=== PATIENT | female | born 1980 | race Caucasian/White ===

== ENCOUNTER 2016-05-28 22:10 | Emergency (ER) | payer MEDICARE ==
--- NOTE | 2016-05-28 22:45 | ERPHSYRPT ---
- History of Present Illness Time Seen by Provider: 05/28/16 22:35 Source: patient Exam Limitations: no limitations Physician History: FOR THE PAST 8 DAYS PT HAS HAD UPPER ABDOMINAL PAIN/CRAMPS WITH NAUSEA, WAS ADMITTED TO [facility] FOR 4 DAYS AND WAS TRANSFERRED TO [facility] WITH DISCHARGE TODAY. PT STATES SHE STILL HAS THE ABDOMINAL PAIN. PT ALSO STATES SHE HAS HAD SHORTNESS OF AIR FOR THE PAST 4 DAYS AND FEVER OF 101 DEGREES TONIGHT. LAST BM WAS TODAY & WNL WITHOUT BLOOD. PT STATES SHE HAD A PE 5 YEARS AGO AND WAS ON COUMADIN FOR ABOUT 1 YEAR. Allergies/Adverse Reactions: trazodone Allergy (Mild, Verified 06/01/15 20:02) Itching iodine Allergy (Verified 05/22/16 10:38) shellfish derived Allergy (Verified 05/22/16 10:38) acetaminophen [From Darvocet-N 100] Adverse Reaction (Verified 06/01/15 20:02) amoxicillin [Amoxicillin] Adverse Reaction (Verified 06/01/15 20:02) Vomiting azithromycin [From Zithromax] Adverse Reaction (Verified 06/01/15 20:02) Vomiting codeine Adverse Reaction (Verified 06/01/15 20:02) haloperidol [From Haldol] Adverse Reaction (Verified 06/01/15 20:02) haloperidol lactate [From Haldol] Adverse Reaction (Verified 06/01/15 20:02) levofloxacin [From Levaquin] Adverse Reaction (Verified 06/01/15 20:02) Rapid Heart Beat palpitations oxycodone [Oxycodone] Adverse Reaction (Verified 06/01/15 20:02) propoxyphene napsylate [From Darvocet-N 100] Adverse Reaction (Verified 20:02) Home Medications: Acetazolamide [Diamox Sequels] 250 mg PO TID 05/21/16 [History] Albuterol Common Canister [Proventil Common Canister] 2 puff PO QID [History] Budesonide/Formoterol Fumarate [Symbicort 160-4.5 Mcg Inhaler] 2 aer PO DAILY [History] Diazepam 10 mg PO TID 05/21/16 [History] Fluoxetine HCl 10 mg [Prozac 10 mg] 40 mg PO DAILY 05/21/16 [History] Folic Acid 1 mg PO DAILY 05/21/16 [History] Gemfibrozil 600 mg [Lopid 600 mg] 600 mg PO BID 05/21/16 [History] Levothyroxine Sodium 100 Mcg [Synthroid 100 Mcg] 100 mcg PO DAILY 05/21/16 [History] Metformin HCl 500 mg [Glucophage 500 MG] 500 mg PO BID 05/21/16 [History] Montelukast Sodium [Singulair] 10 mg PO DAILY 05/21/16 [History] Oxybutynin Chloride [Oxybutynin Chloride ER] 10 mg PO DAILY 05/21/16 [History] Pantoprazole Sodium [Protonix] 40 mg PO DAILY 05/21/16 [History] Phenytoin Sodium Extended [Dilantin] 200 mg PO TID 05/21/16 [History] Propranolol HCl [Propranolol HCl ER] 120 mg PO DAILY 05/21/16 [History] Quetiapine Fumarate [Seroquel] 300 mg PO BID 05/21/16 [History] Spironolactone 25 mg [Aldactone 25 MG] 25 mg PO BID 05/21/16 [History] Topiramate 25 mg [Topamax 25 MG] 25 mg PO BID 05/21/16 [History] Hx Tetanus, Diphtheria Vaccination/Date Given: Yes Hx Influenza Vaccination/Date Given: No Hx Pneumococcal Vaccination/Date Given: No - Review of Systems Constitutional: Fever Respiratory: Dyspnea Cardiac: No Chest Pain Abdominal/Gastrointestinal: Abdominal Pain, No Diarrhea Endocrine: No Excessive Sweating All Other Systems: Reviewed and Negative - Past Medical History Pertinent Past Medical History: Yes Neurological History: Other Cardiac History: Congestive Heart Failure, High Cholesterol, Other Respiratory History: Asthma, COPD, Pneumonia, Sleep Apnea Endocrine Medical History: Diabetes Type II, Hypothyroidism Musculoskeletal History: Degenerative Disk Disease, Osteoarthritis GI Medical History: Other History: No Pertinent History Psycho-Social History: Other Female Reproductive Disorders: No Pertinent History Other Medical History: 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 Tachycardia. Insulin Dependent Diabetes. Depression - Seen by Addie Chacon. Has been approved for bariatric surgery - still has to get cardiac clearance and do dietitian classes but plans on having done before the end of the year - Past Surgical History Past Surgical History: Yes Neuro Surgical History: No Pertinent History Cardiac: No Pertinent History Respiratory: No Pertinent History Gastrointestinal: Appendectomy, Cholecystectomy Genitourinary: No Pertinent History Musculoskeletal: No Pertinent History Female Surgical History: No Pertinent History Other Surgical History: sinus surgery, tonsillectomy - Social History Smoking Status: Former smoker Exposure to second hand smoke: Yes Drug Use: none Patient Lives Alone: Yes - Female History Hx Now: No - Nursing Vital Signs Nursing Vital Signs: Initial Vital Signs Temperature 97.3 F Temperature Source Oral Pulse Rate 78 Respiratory Rate 20 Blood Pressure [] 95/56 Pain Intensity 8 - Physical Exam General Appearance: alert Eye Exam: PERRL/EOMI Ears, Nose, Throat Exam: TMs normal, moist mucous membranes, TM abnormal (L) ( LEFT TM ERYTHEMATOUS), pharyngeal erythema Neck Exam: normal inspection Respiratory Exam: lungs clear Cardiovascular Exam: normal heart sounds Gastrointestinal/Abdomen Exam: soft, normal bowel sounds, tenderness (MILD EPIGASTRIC TENDERNESS) Back Exam: normal range of motion Extremity Exam: pedal edema (+1 BILATERALLY) Neurologic Exam: alert, cooperative Skin Exam: warm, dry SpO2 Interpretation: normal SpO2: 95 Oxygen Delivery: Room Air - Course Nursing assessment & vital signs reviewed: Yes EKG Interpreted by Me: RATE ([id number]), Sinus Rhythm, NORMAL AXIS, NORMAL INTERVALS - Radiology Exams Chest X-ray Interpretation: Interpreted by me, No Pneumonia Ordered Tests: Active Orders 24 hr Category Date Time Status Mechanical Process Engineer STAT Care 05/28/16 22:40 Active EKG-ER Only STAT Care 05/28/16 22:40 Active IV Insertion STAT Care 05/28/16 22:40 Active NPO (ED) STAT Care 05/28/16 22:40 Active Oxygen-ED Only NASAL CANNULA 2 lpm Care 05/28/16 22:40 Active Pulse Oximetry (ED) STAT Care 05/28/16 22:40 Active CHEST 1 VIEW (PORTABLE) Stat Exams 05/28/16 22:40 Taken AMYLASE Stat Lab 05/28/16 23:00 Completed BLOOD CULTURE Stat Lab 05/28/16 23:12 Received CBC W DIFF Stat Lab 05/28/16 23:00 Completed CMP Stat Lab 05/28/16 23:00 Completed CULTURE,SPUTUM Stat Lab 05/28/16 22:41 Uncollected D-DIMER QUANTITATION Stat Lab 05/28/16 23:00 Completed HCG QUALITATIVE,SERUM Stat Lab 05/28/16 23:00 Completed LIPASE Stat Lab 05/28/16 23:00 Completed MAGNESIUM Stat Lab 05/28/16 23:00 Completed Manual Differential NC Stat Lab 05/28/16 23:00 Completed NT PRO BNP Stat Lab 05/28/16 23:00 Completed TROPONIN Stat Lab 05/28/16 23:00 Completed UA W/ MICROSCOPIC Stat Lab 05/28/16 23:06 Completed Urine Triage Profile Stat Lab 05/28/16 23:06 Completed Medication Summary Generic Name Dose Route Start Last Admin Trade Name Freq PRN Reason Stop Dose Admin Sodium Chloride 1,000 mls @ 100 mls/hr 05/28/16 22:45 05/29/16 00:01 Sodium Chloride 0.9% 1000 Ml IV 06/27/16 22:44 100 mls/hr .Q10H IVY Administration Discontinued Medications Generic Name Dose Route Start Last Admin Trade Name Freq PRN Reason Stop Dose Admin Sodium Chloride Confirm 05/28/16 23:52 Sodium Chloride 0.9% 1000 Ml Administered 05/28/16 23:53 Dose 1,000 mls @ ud .ROUTE .STK-MED ONE Sodium Chloride 1,000 mls @ 999 mls/hr 05/29/16 00:18 05/29/16 00:23 Sodium Chloride 0.9% 1000 Ml IV 05/29/16 01:18 999 mls/hr .Q1H1M STA Administration Magnesium Sulfate/Dextrose 100 mls @ 200 mls/hr 05/29/16 00:19 05/29/16 00:26 Magnesium 1 Gm / 100 Ml D5w IV 05/29/16 00:48 200 mls/hr STAT ONE Administration Magnesium Sulfate/Dextrose Confirm 05/29/16 00:26 Magnesium 1 Gm / 100 Ml D5w Administered 05/29/16 00:27 Dose 100 mls @ ud IV .STK-MED ONE Lab/Rad Data: Laboratory Result Diagrams 05/28/16 23:00 05/28/16 23:00 Laboratory Results 05/28/16 05/28/16 05/28/16 Range/Units 23:06 23:06 23:00 WBC (4.0-10.5) K/mm3 RBC (4.1-5.4) M/mm3 Hgb (12.0-16.0) gm/dl Hct (35-47) % MCV (78-100) fl MCH (26-32) pg MCHC (32-36) g/dl RDW (11.5-14.0) % Plt Count (150-450) K/mm3 MPV (6-9.5) fl Segmented Neutrophils (36.0-66.0) % Band Neutrophils (0.0-2.0) % Lymphocytes (Manual) (24-44) % Monocytes (Manual) (0.0-12.0) % Eosinophils (Manual) (0.00-3.0) % Differential Comment Platelet Estimate (NORMAL) D-Dimer 0.407 (0.00-0.49) mg/L Sodium (136-145) mEq/L Potassium (3.5-5.1) mEq/L Chloride (98-107) mEq/L Carbon Dioxide (21-32) mEq/L Anion Gap (5-15) MEQ/L BUN (9-20) mg/dL Creatinine (0.55-1.30) mg/dl Estimated GFR ML/MIN Glucose (70-110) MG/DL Calcium (8.5-10.1) mg/dL Magnesium (1.8-2.4) mg/dL Total Bilirubin (0.2-1.0) mg/dL AST (15-37) U/L ALT (12-78) U/L Alkaline Phosphatase (46-116) U/L Troponin I (0.000-0.056) ng/ml NT-Pro-B Natriuret Pep (0-125) pg/ml Serum Total Protein (6.4-8.2) gm/dL Albumin (3.4-5.0) g/dL Amylase (25-115) U/L Lipase (73-393) U/L Serum , Qual (Negative) Ur Collection Type CLEAN CATCH Urine Color YELLOW (YELLOW) Urine Appearance SLIGHTLY CLOUDY (CLEAR) Urine pH 7.5 (5-6) Ur Specific [place] 1.015 (1.005-1.025) Urine Protein NEGATIVE (Negative) Urine Glucose (UA) NEGATIVE (NEGATIVE) mg/dL Urine Ketones NEGATIVE (NEGATIVE) Urine Nitrite NEGATIVE (NEGATIVE) Urine Bilirubin NEGATIVE (NEGATIVE) Urine Urobilinogen 0.2 (0-1) mg/dL Urine WBC (Auto) NEGATIVE (NEGATIVE) Urine RBC (Auto) SMALL (0-5) Chace/ul Urine Microscopic RBC 0-2 (0-2) /HPF Urine Microscopic WBC 0-2 (0-5) /HPF Ur Epithelial Cells MODERATE (FEW) /HPF Urine Bacteria PACKED (NEGATIVE) /HPF Urine Opiates Level NEG. (NEGATIVE) Ur Methadone NEG. (NEGATIVE) Urine Barbiturates NEG. (NEGATIVE) Ur Phencyclidine (PCP) NEG. (NEGATIVE) Urine Amphetamine NEG. (NEGATIVE) U Benzodiazepine Level POS. (NEGATIVE) Urine Cocaine NEG. (NEGATIVE) Urine Marijuana (THC) NEG. (NEGATIVE) Specimen Received 05/28/16 2245 05/28/16 05/28/16 05/28/16 Range/Units 23:00 23:00 23:00 WBC (4.0-10.5) K/mm3 RBC (4.1-5.4) M/mm3 Hgb (12.0-16.0) gm/dl Hct (35-47) % MCV (78-100) fl MCH (26-32) pg MCHC (32-36) g/dl RDW (11.5-14.0) % Plt Count (150-450) K/mm3 MPV (6-9.5) fl Segmented Neutrophils (36.0-66.0) % Band Neutrophils (0.0-2.0) % Lymphocytes (Manual) (24-44) % Monocytes (Manual) (0.0-12.0) % Eosinophils (Manual) (0.00-3.0) % Differential Comment Platelet Estimate (NORMAL) D-Dimer (0.00-0.49) mg/L Sodium 143 (136-145) mEq/L Potassium 3.7 (3.5-5.1) mEq/L Chloride 106 (98-107) mEq/L Carbon Dioxide 26.0 (21-32) mEq/L Anion Gap 14.7 (5-15) MEQ/L BUN 6 L (9-20) mg/dL Creatinine 0.75 (0.55-1.30) mg/dl Estimated GFR > 60 ML/MIN Glucose 107 (70-110) MG/DL Calcium 8.5 (8.5-10.1) mg/dL Magnesium 1.7 L (1.8-2.4) mg/dL Total Bilirubin 0.1 L (0.2-1.0) mg/dL AST 36 (15-37) U/L ALT 19 (12-78) U/L Alkaline Phosphatase 100 (46-116) U/L Troponin I < 0.017 (0.000-0.056) ng/ml NT-Pro-B Natriuret Pep 224 H (0-125) pg/ml Serum Total Protein 7.0 (6.4-8.2) gm/dL Albumin 3.5 (3.4-5.0) g/dL Amylase 24 L (25-115) U/L Lipase 100 (73-393) U/L Serum , Qual NEGATIVE (Negative) Ur Collection Type Urine Color (YELLOW) Urine Appearance (CLEAR) Urine pH (5-6) Ur Specific [place] (1.005-1.025) Urine Protein (Negative) Urine Glucose (UA) (NEGATIVE) mg/dL Urine Ketones (NEGATIVE) Urine Nitrite (NEGATIVE) Urine Bilirubin (NEGATIVE) Urine Urobilinogen (0-1) mg/dL Urine WBC (Auto) (NEGATIVE) Urine RBC (Auto) (0-5) Chace/ul Urine Microscopic RBC (0-2) /HPF Urine Microscopic WBC (0-5) /HPF Ur Epithelial Cells (FEW) /HPF Urine Bacteria (NEGATIVE) /HPF Urine Opiates Level (NEGATIVE) Ur Methadone (NEGATIVE) Urine Barbiturates (NEGATIVE) Ur Phencyclidine (PCP) (NEGATIVE) Urine Amphetamine (NEGATIVE) U Benzodiazepine Level (NEGATIVE) Urine Cocaine (NEGATIVE) Urine Marijuana (THC) (NEGATIVE) Specimen Received 05/28/16 Range/Units 23:00 WBC 10.7 H (4.0-10.5) K/mm3 RBC 4.25 (4.1-5.4) M/mm3 Hgb 11.9 L (12.0-16.0) gm/dl Hct 39.5 (35-47) % MCV 92.9 (78-100) fl MCH 28.0 (26-32) pg MCHC 30.1 L (32-36) g/dl RDW 15.1 H (11.5-14.0) % Plt Count 168 (150-450) K/mm3 MPV 10.7 H (6-9.5) fl Segmented Neutrophils 71 H (36.0-66.0) % Band Neutrophils 4 H (0.0-2.0) % Lymphocytes (Manual) 21 L (24-44) % Monocytes (Manual) 3 (0.0-12.0) % Eosinophils (Manual) 1 (0.00-3.0) % Differential Comment NORMAL Platelet Estimate NORMAL (NORMAL) D-Dimer (0.00-0.49) mg/L Sodium (136-145) mEq/L Potassium (3.5-5.1) mEq/L Chloride (98-107) mEq/L Carbon Dioxide (21-32) mEq/L Anion Gap (5-15) MEQ/L BUN (9-20) mg/dL Creatinine (0.55-1.30) mg/dl Estimated GFR ML/MIN Glucose (70-110) MG/DL Calcium (8.5-10.1) mg/dL Magnesium (1.8-2.4) mg/dL Total Bilirubin (0.2-1.0) mg/dL AST (15-37) U/L ALT (12-78) U/L Alkaline Phosphatase (46-116) U/L Troponin I (0.000-0.056) ng/ml NT-Pro-B Natriuret Pep (0-125) pg/ml Serum Total Protein (6.4-8.2) gm/dL Albumin (3.4-5.0) g/dL Amylase (25-115) U/L Lipase (73-393) U/L Serum , Qual (Negative) Ur Collection Type Urine Color (YELLOW) Urine Appearance (CLEAR) Urine pH (5-6) Ur Specific [place] (1.005-1.025) Urine Protein (Negative) Urine Glucose (UA) (NEGATIVE) mg/dL Urine Ketones (NEGATIVE) Urine Nitrite (NEGATIVE) Urine Bilirubin (NEGATIVE) Urine Urobilinogen (0-1) mg/dL Urine WBC (Auto) (NEGATIVE) Urine RBC (Auto) (0-5) Chace/ul Urine Microscopic RBC (0-2) /HPF Urine Microscopic WBC (0-5) /HPF Ur Epithelial Cells (FEW) /HPF Urine Bacteria (NEGATIVE) /HPF Urine Opiates Level (NEGATIVE) Ur Methadone (NEGATIVE) Urine Barbiturates (NEGATIVE) Ur Phencyclidine (PCP) (NEGATIVE) Urine Amphetamine (NEGATIVE) U Benzodiazepine Level (NEGATIVE) Urine Cocaine (NEGATIVE) Urine Marijuana (THC) (NEGATIVE) Specimen Received - Progress Discussed with Dr.: Other (SPOKE WITH DR VARGAS([id number])(HOSPITALIST AT [facility]) WHO ACCEPTED PT FOR TRANSFER TO [facility] A DIRECT ADMISSION.) - Departure Time of Disposition: 01:23 Departure Disposition: Transfer ([facility]) Clinical Impression: ABDOMINAL PAIN, DYSPNEA, OBESITY, COPD, DM, HYPOTHYROIDISM, ARTHRITIS, DEPRESSION, HYPOMAGNESEMIA Condition: Stable Critical Care Time: No
[2016-05-28 23:05] LABS: Mean Cell Volume 92.9 fl (78-100); Mean Platelet Volume 10.7 fl (6-9.5); Platelet Count 168 K/mm3 (150-450); Red Blood Count 4.25 M/mm3 (4.1-5.4); Red Cell Distribution Width 15.1 % (11.5-14.0); White Blood Count 10.7 K/mm3 (4.0-10.5)
[2016-05-28 23:22] LABS: Collection Type CLEAN CATCH
[2016-05-28 23:23] LABS: Bacteria PACKED /HPF (NEGATIVE); COMPLETE URINE MICROSCOPIC? YES; Epithelial Cells MODERATE /HPF (FEW); Ph 7.5 (5-6); WBC 0-2 /HPF (0-5)
[2016-05-28 23:36] LABS: ALBUMIN 3.5 g/dL (3.4-5.0); ALKALINE PHOSPHATASE 100 U/L (46-116); ANION GAP 14.7 MEQ/L (5-15); BILIRUBIN,TOTAL 0.1 mg/dL (0.2-1.0); BLOOD UREA NITROGEN 6 mg/dL (9-20); CHLORIDE 106 mEq/L (98-107); Glucose 107 MG/DL (70-110); LIPASE 100 U/L (73-393); MAGNESIUM 1.7 mg/dL (1.8-2.4); Potassium 3.7 mEq/L (3.5-5.1); SGOT/AST 36 U/L (15-37); SGPT/ALT 19 U/L (12-78); SODIUM 143 mEq/L (136-145)
[2016-05-28] MEDS ORDERED: Sodium Chloride 0.9% 1000 ML 1,000 ML ONE (23:52)
[2016-05-29] MEDS: Sodium Chloride 0.9% 1000 ML 1,000 ML IV SCH ×2 (00:01→03:49)
[2016-05-29 00:05] LABS: BAND 4 % (0.0-2.0); Eosinophil 1 % (0.00-3.0); Platelet Estimate NORMAL (NORMAL); Total Cells Counted 100
[2016-05-29] MEDS ORDERED: Sodium Chloride 0.9% 1000 ML 1,000 ML IV STA (00:18)
[2016-05-29] MEDS ORDERED: Magnesium 1 Gm / 100 Ml D5W*** 100 ML IV ONE ×2 (00:19→00:26)
[2016-05-29] MEDS ORDERED: Sodium Chloride 0.9% 1000 ML 1,000 ML ONE (03:42)
[2016-05-29] MEDS ORDERED: Hydromorphone 1 mg/ml Ampule IV ONE (03:42)
[2016-05-29] MEDS ORDERED: Phenergan 25 MG INJ IV ONE (03:42)
[2016-05-29] MEDS ORDERED: Phenergan 25 MG INJ ONE (03:46)
[2016-05-29] MEDS ORDERED: Hydromorphone 1 mg/ml Ampule ONE (03:46)
[2016-05-29 07:02] VITALS: BP 125/61; PULSE 78; O2SAT 97
--- NOTE | 2016-05-29 09:20 | XRAY ---
Indication: Short of breath. Comparison: May 22, 2016. Portable chest demonstrates new right mid to lower lung infiltrate/atelectasis. Remaining lungs clear. Heart is not enlarged. Comment: Right lung finding not reported on preliminary interpretation by the ER clinician. I gave telephone report to Dr. Iniguez in the ER at 0915 hours on May 29, 2016.
== END 2016-05-29 05:08 | disposition short-term general hospital (02) ==
LOC: ED 22:10
DX: R10.9 Unspecified abdominal pain (principal); R06.00 Dyspnea, unspecified; E66.9 Obesity, unspecified; J44.9 Chronic obstructive pulmonary disease, unspecified; E11.9 Type 2 diabetes mellitus without complications; E03.9 Hypothyroidism, unspecified; M19.90 Unspecified osteoarthritis, unspecified site; J45.909 Unspecified asthma, uncomplicated; F32.9 Major depressive disorder, single episode, unspecified; Z79.84 Long term (current) use of oral hypoglycemic drugs; Z79.899 Other long term (current) drug therapy
CPT/HCPCS: 36000; 36415; 71010; 80053; 80307; 81000; 82150; 83690; 83735; 83880; 84484; 84703; 85025; 85379; 87040; 93005; 96374; 96375; 99285; J1170; J2550; J3475

== ENCOUNTER 2016-12-08 23:38 | Emergency (ER) | payer MEDICARE ==
[2016-12-09 00:14] VITALS: O2SAT 94
--- NOTE | 2016-12-09 01:02 | ERPHSYRPT ---
- History of Present Illness Time Seen by Provider: 12/09/16 00:17 Source: patient, family (BROTHER & BOYFRIEND) Exam Limitations: no limitations Patient Subjective Stated Complaint: pt states she was hospitalized at [facility] th night and had a high ammonia level. states since dc, she has been feeling worse and having increased dizziness. Triage Nursing Assessment: pt awake and alert, asnwers questions approp. pt ambulatory with slow steady gait noted, respirations nonlabored with lungs cta. abd obese, soft. bowel sounds noted. pupils equal and reactive, bilat upper and lower ext strength equal. speech slow, approp. Physician History: FOR THE PAST 6 DAYS PT HAS HAD CONFUSION AND DISORIENTATION. THREE DAYS AGO PT WAS HOSPITALIZED AT [facility] OVERNIGHT FOR AN INCREASED AMMONIA LEVEL OF 85 WHICH DECREASED TO 56 AT DISCHARGE. PT DENIES CHEST PAIN, SHORTNESS OF AIR, VOMITING, DIARRHEA; ADMITS TO DIFFUSE ABDOMINAL PAIN, A RIGHT EARACHE AND NO ORAL INTAKE FOR THE PAST 2 DAYS. Allergies/Adverse Reactions: trazodone Allergy (Mild, Verified 12/09/16 00:19) Itching iodine Allergy (Verified 12/09/16 00:19) shellfish derived Allergy (Verified 12/09/16 00:19) acetaminophen [From Darvocet-N 100] Adverse Reaction (Verified 12/09/16 00:19) amoxicillin [Amoxicillin] Adverse Reaction (Verified 12/09/16 00:19) Vomiting codeine Adverse Reaction (Verified 12/09/16 00:19) haloperidol [From Haldol] Adverse Reaction (Verified 12/09/16 00:19) haloperidol lactate [From Haldol] Adverse Reaction (Verified 12/09/16 00:19) levofloxacin [From Levaquin] Adverse Reaction (Verified 12/09/16 00:19) Rapid Heart Beat palpitations oxycodone [Oxycodone] Adverse Reaction (Verified 06/01/15 20:02) propoxyphene napsylate [From Darvocet-N 100] Adverse Reaction (Verified 20:02) Home Medications: Acetazolamide [Diamox Sequels] 250 mg PO TID 05/21/16 [History] Albuterol Common Canister [Proventil Common Canister] 2 puff PO QID [History] Budesonide/Formoterol Fumarate [Symbicort 160-4.5 Mcg Inhaler] 2 aer PO DAILY [History] Diazepam 10 mg PO TID 05/21/16 [History] Fluoxetine HCl 10 mg [Prozac 10 mg] 40 mg PO DAILY 05/21/16 [History] Folic Acid 1 mg PO DAILY 05/21/16 [History] Gemfibrozil 600 mg [Lopid 600 mg] 600 mg PO BID 05/21/16 [History] Levothyroxine Sodium 100 Mcg [Synthroid 100 Mcg] 100 mcg PO DAILY 05/21/16 [History] Metformin HCl 500 mg [Glucophage 500 MG] 500 mg PO BID 05/21/16 [History] Montelukast Sodium [Singulair] 10 mg PO DAILY 05/21/16 [History] Oxybutynin Chloride [Oxybutynin Chloride ER] 10 mg PO DAILY 05/21/16 [History] Pantoprazole Sodium [Protonix] 40 mg PO DAILY 05/21/16 [History] Phenytoin Sodium Extended [Dilantin] 200 mg PO TID 05/21/16 [History] Propranolol HCl [Propranolol HCl ER] 120 mg PO DAILY 05/21/16 [History] Quetiapine Fumarate [Seroquel] 300 mg PO BID 05/21/16 [History] Spironolactone 25 mg [Aldactone 25 MG] 25 mg PO BID 05/21/16 [History] Topiramate 25 mg [Topamax 25 MG] 25 mg PO BID 05/21/16 [History] Albuterol 2.5 mg/3 ml Neb [Proventil 2.5 mg/3 ml Neb] 2.5 mg IH QID PRN [History] Budesonide/Formoterol Fumarate [Symbicort 160-4.5 Mcg Inhaler] 2 puffs BID 05/29 [History] Lorazepam 1 mg PO TID 05/29/16 [History] Tramadol HCl 50 mg [Ultram 50 mg] 50 mg PO 05/29/16 [History] Hx Tetanus, Diphtheria Vaccination/Date Given: Yes Hx Influenza Vaccination/Date Given: No Hx Pneumococcal Vaccination/Date Given: No Immunizations Up to Date: Yes - Review of Systems Ears, Nose, & Throat: Ear Pain Abdominal/Gastrointestinal: Abdominal Pain, Appetite Changes (DECREASED FOR 2 DAYS) Neurological: Other (CONFUSION; DISORIENTATION.) All Other Systems: Reviewed and Negative - Past Medical History Pertinent Past Medical History: Yes Neurological History: Other Cardiac History: Congestive Heart Failure, High Cholesterol, Other Respiratory History: Asthma, COPD, Pneumonia, Sleep Apnea Endocrine Medical History: Diabetes Type II, Hypothyroidism Musculoskeletal History: Degenerative Disk Disease, Osteoarthritis GI Medical History: Other History: No Pertinent History Psycho-Social History: Other Female Reproductive Disorders: No Pertinent History Other Medical History: 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 Tachycardia. Insulin Dependent Diabetes. Depression - Seen by [facility]. Has been approved for bariatric surgery - still has to get cardiac clearance and do dietitian classes but plans on having done before the end of the year - Past Surgical History Past Surgical History: Yes Neuro Surgical History: Brain Shunt Cardiac: No Pertinent History Respiratory: No Pertinent History Gastrointestinal: Appendectomy, Cholecystectomy Genitourinary: No Pertinent History Musculoskeletal: No Pertinent History Female Surgical History: No Pertinent History Other Surgical History: sinus surgery, tonsillectomy - Social History Smoking Status: Current every day smoker How long have you smoked: 14 Exposure to second hand smoke: Yes Drug Use: none Patient Lives Alone: No - Female History Hx Last Menstrual Period: 11/22/16 Hx Now: No - Nursing Vital Signs Nursing Vital Signs: Initial Vital Signs Temperature 98.2 F 12/08/16 23:48 Pulse Rate 96 H 12/08/16 23:48 Respiratory Rate 22 12/08/16 23:48 Blood Pressure 124/87 12/08/16 23:48 O2 Sat by Pulse Oximetry 94 L 12/08/16 23:48 Pain Scale Pain Intensity 8 - Physical Exam General Appearance: alert Eye Exam: PERRL/EOMI Ears, Nose, Throat Exam: pharynx normal, moist mucous membranes Neck Exam: normal inspection Respiratory Exam: lungs clear Cardiovascular Exam: normal heart sounds Gastrointestinal/Abdomen Exam: soft, normal bowel sounds Back Exam: normal range of motion Extremity Exam: normal inspection Neurologic Exam: alert, cooperative, sensation nml, other (NO BABINSKI PRESENT) Skin Exam: warm, dry SpO2 Interpretation: normal SpO2: 94 Oxygen Delivery: Room Air - Course Nursing assessment & vital signs reviewed: Yes - CT Exams Head CT Interpretation: Tele-radiologist Report (THERE IS NO EVIDENCE OF ACUTE INTRA- AXIAL OR CRANIAL BONE ABNORMALITIES.) Abdomen/Pelvis CT Interpretation: Tele-radiologist Report (THERE IS NO EVIDENCE OF ACUTE FOCAL INTRA-ABDOMINAL OR PELVIC ABNORMALITIES. THE GALLBLADDER AND APPENDIX ARE SURGICALLY ABSENT. THERE IS NO EVIDENCE OR ACUTE RENAL OR URETERAL ABNORMALITIES. THE PELVIC ORGANS ARE UNREMARKABLE. THERE ARE SLIGHT COMPRESSION FRACTURES OF THE SUPERIOR ENDPLATES OF T9 - T12 WHICH DO NOT APPEAR ACUTE. THERE IS NO EVIDENCE OF ACUTE DISC PROTRUSIONS OR SPINAL CANAL STENOSIS.) Ordered Tests: Active Orders 24 hr Category Date Time Status ABDOMEN AND PELVIS W/0 CONTRAS [CT] Stat Exams 12/09/16 01:07 Taken HEAD WITHOUT CONTRAST [CT] Stat Exams 12/09/16 01:09 Taken AMYLASE Stat Lab 12/09/16 01:06 Completed CBC W DIFF Stat Lab 12/09/16 01:34 Completed CMP Stat Lab 12/09/16 01:06 Completed DILANTIN(PHENYTOIN) Stat Lab 12/09/16 01:15 Completed HCG QUALITATIVE,SERUM Stat Lab 12/09/16 01:35 Completed LIPASE Stat Lab 12/09/16 01:06 Completed MAG [MAGNESIUM] Stat Lab 12/09/16 01:15 Completed T4 Stat Lab 12/09/16 01:06 Completed TSH, 3RD Generation Stat Lab 12/09/16 01:06 Completed UA W/RFX UR CULTURE Stat Lab 12/09/16 02:14 Completed Medication Summary Generic Name Dose Route Start Last Admin Trade Name Freq PRN Reason Stop Dose Admin Magnesium Oxide 400 mg 12/09/16 10:00 Mag-Ox 400 PO 01/08/17 09:59 BID IVY Phenytoin Sodium 200 mg 12/09/16 03:45 Dilantin 100 Mg PO 12/09/16 03:46 STAT ONE Potassium Chloride 40 meq 12/09/16 10:00 12/09/16 03:10 Potassium Chl 40 Meq/30 Ml Oral Solution PO 01/08/17 09:59 40 meq DAILY IVY Administration Discontinued Medications Generic Name Dose Route Start Last Admin Trade Name Freq PRN Reason Stop Dose Admin Potassium Chloride Confirm 12/09/16 02:52 Klor Con 10 Meq Administered 12/09/16 02:53 Dose 40 meq PO .STK-MED ONE Lab/Rad Data: Laboratory Result Diagrams 12/09/16 01:34 12/09/16 01:06 Laboratory Results 12/09/16 12/09/16 12/09/16 Range/Units 02:14 01:35 01:35 WBC (4.0-10.5) K/mm3 RBC (4.1-5.4) M/mm3 Hgb (12.0-16.0) gm/dl Hct (35-47) % MCV (78-100) fl MCH (26-32) pg MCHC (32-36) g/dl RDW (11.5-14.0) % Plt Count (150-450) K/mm3 MPV (6-9.5) fl Gran % (36.0-66.0) % Lymphocytes % (24.0-44.0) % Monocytes % (0.0-12.0) % Eosinophils % (0.00-5.0) % Basophils % (0.0-0.4) % Basophils # (0-0.4) Sodium (136-145) mEq/L Potassium (3.5-5.1) mEq/L Chloride (98-107) mEq/L Carbon Dioxide (21-32) mEq/L Anion Gap (5-15) MEQ/L BUN (9-20) mg/dL Creatinine (0.55-1.30) mg/dl Estimated GFR ML/MIN Glucose (70-110) MG/DL Calcium (8.5-10.1) mg/dL Magnesium (1.8-2.4) mg/dL Total Bilirubin (0.2-1.0) mg/dL AST (15-37) U/L ALT (12-78) U/L Alkaline Phosphatase (46-116) U/L Ammonia 44 H (11-32) MMOL/l Serum Total Protein (6.4-8.2) gm/dL Albumin (3.4-5.0) g/dL Amylase (25-115) U/L Lipase (73-393) U/L Thyroxine (T4) (4.7-13.3) UG/DL TSH 3rd Generation (0.358-3.740) mIU/L Serum , Qual NEGATIVE (Negative) Ur Collection Type VOID Urine Color YELLOW (YELLOW) Urine Appearance CLEAR (CLEAR) Urine pH 5.0 (5-6) Ur Specific [place] 1.030 (1.005-1.025) Urine Protein NEGATIVE (Negative) Urine Ketones NEGATIVE (NEGATIVE) Urine Blood NEGATIVE (0-5) Chace/ul Urine Nitrite NEGATIVE (NEGATIVE) Urine Bilirubin NEGATIVE (NEGATIVE) Urine Urobilinogen NORMAL (0-1) mg/dL Ur Leukocyte Esterase NEGATIVE (NEGATIVE) Urine Glucose NEGATIVE (NEGATIVE) mg/dL Phenytoin (10-20) ug/ml Specimen Received 12/09/16 0215 12/09/16 12/09/16 12/09/16 Range/Units 01:34 01:15 01:15 WBC 10.4 (4.0-10.5) K/mm3 RBC 4.37 (4.1-5.4) M/mm3 Hgb 12.8 (12.0-16.0) gm/dl Hct 41.0 (35-47) % MCV 93.8 (78-100) fl MCH 29.3 (26-32) pg MCHC 31.2 L (32-36) g/dl RDW 14.9 H (11.5-14.0) % Plt Count 173 (150-450) K/mm3 MPV 10.9 H (6-9.5) fl Gran % 67.3 H (36.0-66.0) % Lymphocytes % 24.2 (24.0-44.0) % Monocytes % 6.4 (0.0-12.0) % Eosinophils % 1.7 (0.00-5.0) % Basophils % 0.4 (0.0-0.4) % Basophils # 0.04 (0-0.4) Sodium (136-145) mEq/L Potassium (3.5-5.1) mEq/L Chloride (98-107) mEq/L Carbon Dioxide (21-32) mEq/L Anion Gap (5-15) MEQ/L BUN (9-20) mg/dL Creatinine (0.55-1.30) mg/dl Estimated GFR ML/MIN Glucose (70-110) MG/DL Calcium (8.5-10.1) mg/dL Magnesium 1.7 L (1.8-2.4) mg/dL Total Bilirubin (0.2-1.0) mg/dL AST (15-37) U/L ALT (12-78) U/L Alkaline Phosphatase (46-116) U/L Ammonia (11-32) MMOL/l Serum Total Protein (6.4-8.2) gm/dL Albumin (3.4-5.0) g/dL Amylase (25-115) U/L Lipase (73-393) U/L Thyroxine (T4) (4.7-13.3) UG/DL TSH 3rd Generation (0.358-3.740) mIU/L Serum , Qual (Negative) Ur Collection Type Urine Color (YELLOW) Urine Appearance (CLEAR) Urine pH (5-6) Ur Specific [place] (1.005-1.025) Urine Protein (Negative) Urine Ketones (NEGATIVE) Urine Blood (0-5) Chace/ul Urine Nitrite (NEGATIVE) Urine Bilirubin (NEGATIVE) Urine Urobilinogen (0-1) mg/dL Ur Leukocyte Esterase (NEGATIVE) Urine Glucose (NEGATIVE) mg/dL Phenytoin 3.9 L (10-20) ug/ml Specimen Received 12/09/16 Range/Units 01:06 WBC (4.0-10.5) K/mm3 RBC (4.1-5.4) M/mm3 Hgb (12.0-16.0) gm/dl Hct (35-47) % MCV (78-100) fl MCH (26-32) pg MCHC (32-36) g/dl RDW (11.5-14.0) % Plt Count (150-450) K/mm3 MPV (6-9.5) fl Gran % (36.0-66.0) % Lymphocytes % (24.0-44.0) % Monocytes % (0.0-12.0) % Eosinophils % (0.00-5.0) % Basophils % (0.0-0.4) % Basophils # (0-0.4) Sodium 145 (136-145) mEq/L Potassium 3.3 L (3.5-5.1) mEq/L Chloride 111 H (98-107) mEq/L Carbon Dioxide 18.9 L (21-32) mEq/L Anion Gap 18.2 H (5-15) MEQ/L BUN 5 L (9-20) mg/dL Creatinine 0.68 (0.55-1.30) mg/dl Estimated GFR > 60 ML/MIN Glucose 116 H (70-110) MG/DL Calcium 8.7 (8.5-10.1) mg/dL Magnesium (1.8-2.4) mg/dL Total Bilirubin 0.10 L (0.2-1.0) mg/dL AST 23 (15-37) U/L ALT 17 (12-78) U/L Alkaline Phosphatase 103 (46-116) U/L Ammonia (11-32) MMOL/l Serum Total Protein 6.7 (6.4-8.2) gm/dL Albumin 3.3 L (3.4-5.0) g/dL Amylase 22 L (25-115) U/L Lipase 74 (73-393) U/L Thyroxine (T4) 3.6 (4.7-13.3) UG/DL TSH 3rd Generation 1.139 (0.358-3.740) mIU/L Serum , Qual (Negative) Ur Collection Type Urine Color (YELLOW) Urine Appearance (CLEAR) Urine pH (5-6) Ur Specific [place] (1.005-1.025) Urine Protein (Negative) Urine Ketones (NEGATIVE) Urine Blood (0-5) Chace/ul Urine Nitrite (NEGATIVE) Urine Bilirubin (NEGATIVE) Urine Urobilinogen (0-1) mg/dL Ur Leukocyte Esterase (NEGATIVE) Urine Glucose (NEGATIVE) mg/dL Phenytoin (10-20) ug/ml Specimen Received - Departure Time of Disposition: 03:59 Departure Disposition: Home Clinical Impression: ABDOMINAL PAIN, MILD HYPOKALEMIA, MILD HYPOMAGNESEMIA, SUBTHERAPEUTIC DILANTIN LEVEL, DIZZINESS, DECREASING AMMONIA LEVEL OF 44, ARTHRITIS, DM, HYPOTHYROIDISM , COPD Condition: Stable Critical Care Time: No Referrals: STEPHANIE NELSON [Primary Care Provider] - Instructions: Vertigo Additional Instructions: FOLLOW UP WITH PRIVATE DOCTOR LATER TODAY. Prescriptions: Meclizine HCl 25 mg [Antivert 25 mg] 25 mg PO Q8H PRN PRN #30 tablet PRN Reason: Dizziness
[2016-12-09 01:41] LABS: BASOPHIL % 0.4 % (0.0-0.4); Eosinophil % 1.7 % (0.00-5.0); Granulocytes % 67.3 % (36.0-66.0); Lymphocytes % 24.2 % (24.0-44.0); Mean Cell Volume 93.8 fl (78-100); Mean Corpuscular Hemoglobin 29.3 pg (26-32); Mean Platelet Volume 10.9 fl (6-9.5); Monocytes % 6.4 % (0.0-12.0); Platelet Count 173 K/mm3 (150-450); Red Blood Count 4.37 M/mm3 (4.1-5.4); Red Cell Distribution Width 14.9 % (11.5-14.0); White Blood Count 10.4 K/mm3 (4.0-10.5)
[2016-12-09 02:10] LABS: ALBUMIN 3.3 g/dL (3.4-5.0); ALKALINE PHOSPHATASE 103 U/L (46-116); ANION GAP 18.2 MEQ/L (5-15); BLOOD UREA NITROGEN 5 mg/dL (9-20); CHLORIDE 111 mEq/L (98-107); Carbon Dioxide 18.9 mEq/L (21-32); Glucose 116 MG/DL (70-110); LIPASE 74 U/L (73-393); Potassium 3.3 mEq/L (3.5-5.1); SGOT/AST 23 U/L (15-37); SGPT/ALT 17 U/L (12-78); SODIUM 145 mEq/L (136-145); Total Protein 6.7 gm/dL (6.4-8.2)
[2016-12-09 02:17] LABS: Collection Type VOID
[2016-12-09 02:18] LABS: ADD URINE CULTURE? NO (NO); Bilirubin NEGATIVE (NEGATIVE); Blood NEGATIVE Ery/ul (0-5); COMPLETE URINE MICROSCOPIC? NO; Glucose NEGATIVE (NEGATIVE); Leukocyte Esterase NEGATIVE (NEGATIVE)
[2016-12-09] MEDS ORDERED: Klor Con 10 MEQ PO ONE (02:52)
[2016-12-09] MEDS ORDERED: POTASSIUM CHLORIDE 20 MEQ POWDER FOR ORAL SOL PO ONE (03:05)
[2016-12-09] MEDS ORDERED: Dilantin 100 MG PO ONE (03:45)
[2016-12-09] MEDS ORDERED: MAG-OX 400 ONE (03:53)
[2016-12-09 04:12] VITALS: BP 118/68; PULSE 87
--- NOTE | 2016-12-09 09:25 | XRAY ---
Indication: Dizziness and disorientated. Multiple contiguous axial images obtained through the head without contrast. Comparison: January 02, 2013. Again study slightly degraded by motion artifact. No acute intracranial hemorrhage, abnormal extra-axial fluid question, or mass effect. Fourth ventricle is midline without hydrocephalus. Francois-white matter differentiation preserved. Bony calvarium intact. Visualized paranasal sinuses and mastoid air cells clear. Impression: Motion artifact. No acute intracranial abnormalities. Comment: Preliminary interpretation was made by [facility]. No discrepancy. CT DI 87.81
--- NOTE | 2016-12-09 09:31 | XRAY ---
Indication: Diffuse abdominal pain. Multiple contiguous axial images obtained through the abdomen and pelvis without contrast as ordered. Comparison: None Lung bases essentially clear. Heart is not enlarged. Noncontrasted stomach and small bowel loops appear nonobstructed. Previous reported appendectomy and cholecystectomy. No free fluid/air. Spleen is enlarged measuring 17.8 cm greatest axial dimension. Remaining liver, pancreas, spleen, adrenal glands, kidneys, ureters, bladder, uterus, and aorta appear unremarkable for noncontrast exam. Osseous structures intact with incidental thoracic spine Schmorl nodes and remnant spinal stimulator lead. Impression: 1. No acute intra-abdominal/pelvic abnormalities on this noncontrast exam. 2. Incidental splenomegaly. Comment: Preliminary interpretation was made by [facility]. Splenomegaly not reported and is a incidental finding. CT DI 28.13
[2016-12-09] MEDS ORDERED: POTASSIUM CHL 40 MEQ/30 ML ORAL SOLUTION PO SCH (10:00)
[2016-12-09] MEDS ORDERED: MAG-OX 400 PO SCH (10:00)
== END 2016-12-09 04:32 | disposition home or self-care (01) ==
LOC: ED 23:38
DX: R10.9 Unspecified abdominal pain (principal); E87.6 Hypokalemia; E83.42 Hypomagnesemia; Z79.899 Other long term (current) drug therapy; R42 Dizziness and giddiness; R88.8 Abnormal findings in other body fluids and substances; M19.90 Unspecified osteoarthritis, unspecified site; E11.9 Type 2 diabetes mellitus without complications; E03.9 Hypothyroidism, unspecified; J44.9 Chronic obstructive pulmonary disease, unspecified
CPT/HCPCS: 99284; 82150; 81002; 84443; 36415; 80185; 84703; 84436; 83690; 83735; 82140; 85025; 80053; 70450; 74176; P9612; A9270-GY